=== PATIENT | male | born 1975 | race American Indian/Alaskan Native ===

== ENCOUNTER 2021-07-27 06:10 | Inpatient (IN) | payer SELFPAY ==
[~2021-07-27 06:10] MED LIST: CALCIUM CHLORIDE 1,000 MG/10 ML SYRINGE IV ONE; EPINEPHrine 1 MG/10 ML SYRINGE ONE; SODIUM BICARB 8.4% 50 MEQ/50 ML SYRINGE IV ONE
[2021-07-27] MEDS ORDERED: SODIUM CHLORIDE 0.9% 500 ML 500 ML IV ONE (06:42)
[2021-07-27 07:15] LABS: Hematocrit 34.3 % (35.5-45.6); Hemoglobin 11.2 gm/dl (11.8-15.2); Mean Corpuscular HGB Conc 33 % (32-34); Mean Corpuscular Volume 93 fl (84-94); Red Cell Distribution Width 16.5 % (13.2-15.2)
--- NOTE | 2021-07-27 07:16 | Emergency Department Report ---
HPI - General Chief Complaint: Fever - HPI HPI: Room 4 The patient is a 45-year-old male present with chief complaint of "my legs gave out." The patient states this morning while walking his "legs gave out and he fell to the ground." Patient states he was unable to get up so he laid on the floor for proxy 1 hour before he was found by his fiance. EMS was called and arrived on scene to find the patient hypoxic to 88% on room air. Patient was placed on a nonrebreather with improvement of sats to 100% patient denied ever feeling short of breath, denies URI symptoms,, denies fever, cough nausea or vomiting. Patient states nothing is bothering him as though his lower extremity edema has had for past few days. Patient has a history of ESRD and receives dialysis every Monday and was last dialyzed yesterday. Patient states he does not recall the name of his j[facility] developer ED Past Medical Hx - Past Medical History Previous Medical History?: Yes Hx Hypertension: Yes Hx Diabetes: Yes Hx Renal Disease: Yes (ESRD HD Q MWF) - Surgical History Past Surgical History?: No Additional Surgical History: Left upper extremity fistula - Family History Family history: no significant - Social History Smoking Status: Never Smoker Substance Use Type: None (Denies illicit drug use) ED Review of Systems ROS: Stated complaint: fall Other details as noted in HPI Constitutional: denies: fever Eyes: denies: eye pain ENT: denies: throat pain Respiratory: denies: cough, shortness of breath Cardiovascular: denies: chest pain Endocrine: no symptoms reported Gastrointestinal: denies: abdominal pain Genitourinary: denies: dysuria Musculoskeletal: denies: back pain Neurological: denies: headache Hematological/Lymphatic: other (Bilateral lower extremity edema) Physical Exam - Physical Exam Vital Signs: Vital Signs 07/27/21 07/27/21 07/27/21 06:13 06:45 06:47 Temperature 100.6 F H Pulse Rate 113 H Respiratory 24 12 Rate Blood Pressure 109/55 O2 Sat by Pulse 100 88 100 Oximetry Physical Exam: GENERAL: The patient is well-developed well-nourished male lying on stretcher with nonrebreather in place not appearing to be in acute distress. [] HEENT: Normocephalic. Atraumatic. Extraocular motions are intact. Patient has moist mucous membranes. NECK: Supple. Trachea midline CHEST/LUNGS: Clear to auscultation. There is no respiratory distress noted. HEART/CARDIOVASCULAR: Regular. There is no tachycardia. There is no gallop rub or murmur. ABDOMEN: Abdomen is soft, nontender. Patient has normal bowel sounds. There is no abdominal distention. SKIN: There is no rash. There is 2-3+ bilateral lower extremity pitting edema. There is no diaphoresis. NEURO: The patient is awake, alert, and oriented. The patient is cooperative. The patient has no focal neurologic deficits. The patient has normal speech. GCS 15 MUSCULOSKELETAL: There is no evidence of acute injury. ED Course Vital Signs 07/27/21 07/27/21 07/27/21 06:13 06:45 06:47 Temperature 100.6 F H Pulse Rate 113 H Respiratory 24 12 Rate Blood Pressure 109/55 O2 Sat by Pulse 100 88 100 Oximetry - Consultations Consultation #1: 07/27/21 07:57 Nephrology paged ED Medical Decision Making - Lab Data Result diagrams: 07/27/21 06:49 07/27/21 06:49 Laboratory Tests 07/27/21 07/27/21 07/27/21 06:49 06:49 06:49 WBC 10.3 RBC 3.70 Hgb 11.2 L Hct 34.3 L MCV 93 MCH 30 MCHC 33 RDW 16.5 H Plt Count 95 L Add Manual Diff Complete Total Counted 100 Seg Neuts % (Manual) 54.0 Band Neutrophils % 17.0 Lymphocytes % (Manual) 4.0 L Reactive Lymphs % (Man) 0 Monocytes % (Manual) 10.0 H Eosinophils % (Manual) 1.0 Basophils % (Manual) 0 Metamyelocytes % 14.0 Myelocytes % 0 Promyelocytes % 0 Blast Cells % 0 Nucleated RBC % Not Reportable Seg Neutrophils # Man 5.6 Band Neutrophils # 1.8 Lymphocytes # (Manual) 0.4 L Abs React Lymphs (Man) 0.0 Monocytes # (Manual) 1.0 H Eosinophils # (Manual) 0.1 Basophils # (Manual) 0.0 Metamyelocytes # 1.4 Myelocytes # 0.0 Promyelocytes # 0.0 Blast Cells # 0.0 WBC Morphology Not Reportable Hypersegmented Neuts Not Reportable Hyposegmented Neuts 1+ Hypogranular Neuts Not Reportable Smudge Cells Not Reportable Toxic Granulation Not Reportable Toxic Vacuolation Not Reportable Dohle Bodies Not Reportable Pelger-Huet Anomaly Not Reportable Jane Rods Not Reportable Platelet Estimate Consistent w auto Clumped Platelets Not Reportable Plt Clumps, EDTA Not Reportable Large Platelets Not Reportable Giant Platelets Not Reportable Platelet Satelliting Not Reportable Plt Morphology Comment Not Reportable RBC Morphology Not Reportable Dimorphic RBCs Not Reportable Polychromasia Not Reportable Hypochromasia Not Reportable Poikilocytosis Few Anisocytosis Not Reportable Microcytosis Not Reportable Macrocytosis Not Reportable Spherocytes Not Reportable Pappenheimer Bodies Not Reportable Sickle Cells Not Reportable Target Cells Not Reportable Tear Drop Cells Few Ovalocytes Few Helmet Cells Not Reportable Reyes-Ceres Bodies Not Reportable [place] Rings Not Reportable [place] Cells Not Reportable Bite Cells Not Reportable Crenated Cell Not Reportable Elliptocytes Not Reportable Acanthocytes (Spur) Not Reportable Rouleaux Not Reportable Hemoglobin C Crystals Not Reportable Schistocytes Not Reportable Malaria parasites Not Reportable Burak Bodies Not Reportable Hem Pathologist Commnt No PT 17.8 H INR 1.31 H VBG pH Sodium Potassium Chloride Carbon Dioxide Anion Gap BUN Creatinine Estimated GFR BUN/Creatinine Ratio Glucose Lactic Acid 3.80 H* Calcium Total Bilirubin AST ALT Alkaline Phosphatase Total Creatine Kinase Troponin T NT-Pro-B Natriuret Pep Total Protein Albumin Albumin/Globulin Ratio Triglycerides Cholesterol LDL Cholesterol Direct HDL Cholesterol Cholesterol/HDL Ratio Hep Bs Antigen Hep B Core IgM Ab Hepatitis C Antibody 07/27/21 07/27/21 07/27/21 06:49 06:49 10:04 WBC RBC Hgb Hct MCV MCH MCHC RDW Plt Count Add Manual Diff Total Counted Seg Neuts % (Manual) Band Neutrophils % Lymphocytes % (Manual) Reactive Lymphs % (Man) Monocytes % (Manual) Eosinophils % (Manual) Basophils % (Manual) Metamyelocytes % Myelocytes % Promyelocytes % Blast Cells % Nucleated RBC % Seg Neutrophils # Man Band Neutrophils # Lymphocytes # (Manual) Abs React Lymphs (Man) Monocytes # (Manual) Eosinophils # (Manual) Basophils # (Manual) Metamyelocytes # Myelocytes # Promyelocytes # Blast Cells # WBC Morphology Hypersegmented Neuts Hyposegmented Neuts Hypogranular Neuts Smudge Cells Toxic Granulation Toxic Vacuolation Dohle Bodies Pelger-Huet Anomaly Jane Rods Platelet Estimate Clumped Platelets Plt Clumps, EDTA Large Platelets Giant Platelets Platelet Satelliting Plt Morphology Comment RBC Morphology Dimorphic RBCs Polychromasia Hypochromasia Poikilocytosis Anisocytosis Microcytosis Macrocytosis Spherocytes Pappenheimer Bodies Sickle Cells Target Cells Tear Drop Cells Ovalocytes Helmet Cells Reyes-Ceres Bodies [place] Rings [place] Cells Bite Cells Crenated Cell Elliptocytes Acanthocytes (Spur) Rouleaux Hemoglobin C Crystals Schistocytes Malaria parasites Burak Bodies Hem Pathologist Commnt PT INR VBG pH 7.367 Sodium 141 Potassium 4.8 Chloride 102.7 Carbon Dioxide 21 L Anion Gap 22 BUN 62 H Creatinine 6.4 H Estimated GFR 12 BUN/Creatinine Ratio 10 Glucose 81 Lactic Acid 3.80 H* Calcium 7.7 L Total Bilirubin 0.50 AST 30 ALT 30 Alkaline Phosphatase 47 Total Creatine Kinase 276 H Troponin T 0.222 H* NT-Pro-B Natriuret Pep 28677 H Total Protein 4.6 L Albumin 2.9 L Albumin/Globulin Ratio 1.7 Triglycerides 149 Cholesterol 144 LDL Cholesterol Direct 58 HDL Cholesterol 62 H Cholesterol/HDL Ratio 2.32 Hep Bs Antigen Hep B Core IgM Ab Hepatitis C Antibody 07/27/21 10:04 WBC RBC Hgb Hct MCV MCH MCHC RDW Plt Count Add Manual Diff Total Counted Seg Neuts % (Manual) Band Neutrophils % Lymphocytes % (Manual) Reactive Lymphs % (Man) Monocytes % (Manual) Eosinophils % (Manual) Basophils % (Manual) Metamyelocytes % Myelocytes % Promyelocytes % Blast Cells % Nucleated RBC % Seg Neutrophils # Man Band Neutrophils # Lymphocytes # (Manual) Abs React Lymphs (Man) Monocytes # (Manual) Eosinophils # (Manual) Basophils # (Manual) Metamyelocytes # Myelocytes # Promyelocytes # Blast Cells # WBC Morphology Hypersegmented Neuts Hyposegmented Neuts Hypogranular Neuts Smudge Cells Toxic Granulation Toxic Vacuolation Dohle Bodies Pelger-Huet Anomaly Jane Rods Platelet Estimate Clumped Platelets Plt Clumps, EDTA Large Platelets Giant Platelets Platelet Satelliting Plt Morphology Comment RBC Morphology Dimorphic RBCs Polychromasia Hypochromasia Poikilocytosis Anisocytosis Microcytosis Macrocytosis Spherocytes Pappenheimer Bodies Sickle Cells Target Cells Tear Drop Cells Ovalocytes Helmet Cells Reyes-Ceres Bodies [place] Rings Rashard Cells Bite Cells Crenated Cell Elliptocytes Acanthocytes (Spur) Rouleaux Hemoglobin C Crystals Schistocytes Malaria parasites Burak Bodies Hem Pathologist Commnt PT INR VBG pH Sodium Potassium Chloride Carbon Dioxide Anion Gap BUN Creatinine Estimated GFR BUN/Creatinine Ratio Glucose Lactic Acid Calcium Total Bilirubin AST ALT Alkaline Phosphatase Total Creatine Kinase Troponin T NT-Pro-B Natriuret Pep Total Protein Albumin Albumin/Globulin Ratio Triglycerides Cholesterol LDL Cholesterol Direct HDL Cholesterol Cholesterol/HDL Ratio Hep Bs Antigen Non-reactive Hep B Core IgM Ab Non-reactive Hepatitis C Antibody Non-reactive - EKG Data -: EKG Interpreted by Me EKG shows normal: sinus rhythm Rate: tachycardia (113 beats per) - EKG Data When compared to previous EKG there are: previous EKG unavailable Interpretation: nonspecific ST-T wave nicole (T wave inversion lead III) - Radiology Data Radiology results: report reviewed (Chest x-ray, CT chest), image reviewed (Chest x-ray, CT chest) interpreted by me: Chest x-ray-no definite focal infiltrate, no pneumothorax [address] [address] Cat Scan Report Signed Patient: DON GONSALVES MR#: [id number] : 1975 Acct:[id number] Age/Sex: 45 / M ADM Date: 07/27/21 Loc: ED Attending Dr: Ordering Physician: TERRI GOMEZ MD Date of Service: 07/27/21 Procedure(s): CT angio chest Accession Number(s): [id number] cc: TERRI GOMEZ MD CTA CHEST WITH CONTRAST INDICATION : Hypoxia, fever OMNI 350 100 ML. TECHNIQUE: Axial imaging performed through the chest, with contrast bolus timing set to maximize opacification of the pulmonary arteries. Sagittal and coronal reformatted images. 3-plane MIP reformatted images were obtained. All CT scans at this location are performed using CT dose reduction for ALARA by means of automated exposure control. Omnipaque 350 100 mL of intravenous contrast administered. COMPARISON: AP chest performed earlier today FINDINGS: Bolus: Contrast bolus timing is adequate. PTE: No filling defect is present to suggest PTE. Mediastinum: Mild cardiomegaly and small anterior pericardial fluid are identified. The aorta and great vessels are unremarkable. Mediastinal contents are within normal limits. No pathologic mediastinal adenopathy. Lungs: No evidence for infiltrate, pleural effusion or pneumothorax. No interstitial lung disease. A 1.3 cm well-circumscribed nodule is identified in the anterior left lower lobe on image 81, series 2. Bones: Degenerative changes in the spine with nothing acute. No suspicious bony lesion is detected. Upper abdomen: Limited imaging of the upper abdomen shows nothing acute. A 4 x 2 well circumscribed hypoechoic density is identified in the medial left breast has the appearance of a seroma or sebaceous cyst. There is mild diffuse subcutaneous edema throughout the chest wall. IMPRESSION: No evidence for pulmonary embolus. No acute process is identified in the chest. Mild cardiomegaly and small pericardial effusion. 1.3 cm nodule in the left lower lobe. Current guidelines recommend follow-up CT in 3 months, and/or PET/CT, and/or biopsy. I would consider PET/CT if further evaluation is needed. Probable seroma or sebaceous cyst in the medial left br east soft tissues. Signer Name: Jeff Richardson Jr, MD Signed: 07/27/2021 11:08 AM Workstation Name: [id number] Transcribed By: TTR Dictated By: JEFF RICHARDSON JR, MD Electronically Authenticated By: JEFF RICHARDSON JR, MD Signed Date/Time: 07/27/21 1108 DD/ 1056 TD/TT: [facility] [address] [place] [address] XRay Report Signed Patient: DON GONSALVES MR#: [id number] : 1975 Acct:[id number] Age/Sex: 45 / M ADM Date: 07/27/21 Loc: ED Attending Dr: Ordering Physician: TERRI GOMEZ MD Date of Service: 07/27/21 Procedure(s): XR chest 1V ap Accession Number(s): [id number] cc: TERRI GOMEZ MD Fluoro Time In Minutes: CHEST 1 VIEW INDICATION: possible Sepsis. COMPARISON: None FINDINGS: Support devices: None. Heart: Mild cardiomegaly Lungs/Pleura: The lungs are clear with no evidence for pneumonia, pleural effusion or pneumothorax. Additional findings: None. IMPRESSION: Mild cardiomegaly. Lungs clear. Signer Name: Jeff Richardson Jr, MD Signed: 07/27/2021 7:51 AM Workstation Name: [id number] Transcribed By: TTR Dictated By: JEFF RICHARDSON JR, MD Electronically Authenticated By: JEFF RICHARDSON JR, MD Signed Date/Time: 07/27/21750 DD/ 9 TD/TT: - Differential Diagnosis Sepsis, volume overload, pneumonia, Critical care attestation.: If time is entered above; I have spent that time in minutes in the direct care of this critically ill patient, excluding procedure time. ED Disposition Clinical Impression: Fever, Peripheral edema, ESRD (end stage renal disease) Disposition: ADMITTED INPATIENT Is pt being admited?: Yes Does the pt Need Aspirin: No Condition: Fair Referrals: PRIMARY CARE, [Primary Care Provider] - 3-5 Days Time of Disposition: 11:19 (Care transferred to hospitalist (Dr. Hyde))
[2021-07-27 07:17] LABS: Platelet Count 95 K/mm3 (140-440)
[2021-07-27] MEDS ORDERED: ACETAMINOPHEN 500 MG TAB PO ONE (07:19)
[2021-07-27 07:24] LABS: INR 1.31 (0.87-1.13)
[2021-07-27 07:34] LABS: Albumin 2.9 g/dL (3.9-5); Calcium 7.7 mg/dL (8.4-10.2)
--- NOTE | 2021-07-27 07:55 | XRay Report ---
CHEST 1 VIEW INDICATION: possible Sepsis. COMPARISON: None FINDINGS: Support devices: None. Heart: Mild cardiomegaly Lungs/Pleura: The lungs are clear with no evidence for pneumonia, pleural effusion or pneumothorax. Additional findings: None. IMPRESSION: Mild cardiomegaly. Lungs clear. Signer Name: Jeff Richardson Jr, MD Signed: 07/27/2021 7:51 AM Workstation Name: [id number]
[2021-07-27 07:57] LABS: Chol/HDL Ratio 2.32 %
[2021-07-27 09:40] LABS: Band Neutrophils # (Manual) 1.8 K/mm3; Basophils % (Manual) 0 % (0.0-1.8); Total Cells Counted 100
[2021-07-27 09:45] LABS: Tear Drop Cells Few
[2021-07-27 09:46] LABS: Ovalocytes Few; Poikilocytosis Few
[2021-07-27 09:49] LABS: Platelet Estimate Consistent w Auto
--- NOTE | 2021-07-27 10:26 | Electrocardiograph Report ---
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
[2021-07-27 10:48] LABS: Hepatitis B Surface Antigen Non-Reactive (Negative); Hepatitis C Virus Antibody Non-Reactive (NonReactive)
--- NOTE | 2021-07-27 11:13 | Cat Scan Report ---
CTA CHEST WITH CONTRAST INDICATION : Hypoxia, fever OMNI 350 100 ML. TECHNIQUE: Axial imaging performed through the chest, with contrast bolus timing set to maximize opa cification of the pulmonary arteries. Sagittal and coronal reformatted images. 3-plane MIP reformatte d images were obtained. All CT scans at this location are performed using CT dose reduction for ALAR A by means of automated exposure control. Omnipaque 350 100 mL of intravenous contrast administered. COMPARISON: AP chest performed earlier today FINDINGS: Bolus: Contrast bolus timing is adequate. PTE: No filling defect is present to suggest PTE. Mediastinum: Mild cardiomegaly and small anterior pericardial fluid are identified. The aorta and gr eat vessels are unremarkable. Mediastinal contents are within normal limits. No pathologic mediastin al adenopathy. Lungs: No evidence for infiltrate, pleural effusion or pneumothorax. No interstitial lung disease. A 1.3 cm well-circumscribed nodule is identified in the anterior left lower lobe on image 81, series 2 . Bones: Degenerative changes in the spine with nothing acute. No suspicious bony lesion is detected. Upper abdomen: Limited imaging of the upper abdomen shows nothing acute. A 4 x 2 well circumscribed hypoechoic density is identified in the medial left breast has the appearance of a seroma or sebaceo us cyst. There is mild diffuse subcutaneous edema throughout the chest wall. IMPRESSION: No evidence for pulmonary embolus. No acute process is identified in the chest. Mild cardiomegaly and small pericardial effusion. 1.3 cm nodule in the left lower lobe. Current guidelines recommend follow-up CT in 3 months, and/or P ET/CT, and/or biopsy. I would consider PET/CT if further evaluation is needed. Probable seroma or sebaceous cyst in the medial left breast soft tissues. Signer Name: Jeff Richardson Jr, MD Signed: 07/27/2021 11:08 AM Workstation Name: [id number]
[2021-07-27] MEDS ORDERED: PIPERACIL-TAZO 2.25 GM/50 ML 2.25 GM/50 ML BAG IV ONE ×2 (11:37→18:00)
[2021-07-27] MEDS ORDERED: ONDANSETRON 4 MG/2 ML INJ IV PRN (12:11)
[2021-07-27] MEDS ORDERED: MORPHINE 2 MG/1 ML INJ IV PRN (12:11)
[2021-07-27] MEDS ORDERED: ACETAMINOPHEN 325 MG TAB PO PRN (12:11)
[2021-07-27] MEDS ORDERED: oxyCODONE /ACETAMINOPHEN 5-325MG TAB PO PRN (12:11)
--- NOTE | 2021-07-27 12:15 | History and Physical Report ---
History of Present Illness Date of examination: 07/27/21 Date of admission: July 27, 2021 Chief complaint: Severe weakness and difficulty walking. Fever. Since a.m. History of present illness: 45-year-old -[place]ican male with morbid obesity with a BMI of 42 and w eighing about 316 pounds comes in for weakness in the both the legs and fever. Patient woke up around 4:30 AM and while going to the restroom his legs gave out and fell to the ground. Patient states that he was unable to get them for approximately 1 hour before he was found by his fiance. EMS was called. Patient was hypoxic to 88% on room air. Patient was placed on nonrebreather with improvement of oxygen saturations 100%. Patient denied feeling shortness of breath. Denying any upper respiratory symptoms fever cough or vomiting. In the emergency room his temperature was 101.9. His main complaint is weakness in both the legs. Patient had dialysis on Monday and Monday. Today is Monday and is due for dialysis at 2 PM. Patient was brought in here because of fall and hypoxia. Patient incidentally had a, possible sepsis and acute respiratory failure with hypoxia of 101.9. Slightly altered sensorium. ED course: Patient being admitted for high fever, sepsis and acute respiratory failure. Also for emergent hemodialysis. Nephrology was consulted. IV Zosyn was given. Blood cultures done. Chest x-ray did not show any pneumonia. - Past Medical History --Previous Medical History?: Yes --Hypertension: Yes --Diabetes: Yes --Renal Disease: Yes (ESRD HD Q MWF) - Surgical History --Left upper extremity fistula - Family History --Family history: no significant - Social History --Smoking Status: Never Smoker --Substance Use Type: None (Denies illicit drug use -Review of Systems ROS: Stated complaint: fall Other details as noted in HPI Constitutional: denies: fever Eyes: denies: eye pain ENT: denies: throat pain Respiratory: denies: cough, shortness of breath Cardiovascular: denies: chest pain Endocrine: no symptoms reported Gastrointestinal: denies: abdominal pain Genitourinary: denies: dysuria Musculoskeletal: denies: back pain Neurological: denies: headache Hematological/Lymphatic: other (Bilateral lower extremity edema) Medications and Allergies Allergies Allergy/AdvReac Type Severity Reaction Status Date / Time No Known Allergies Allergy Verified 07/27/21 07:09 Exam - Constitutional Vitals: Temp Pulse Resp BP Pulse Ox 101.9 F H 67 18 99/43 100 07/27/21 11:50 07/27/21 11:50 07/27/21 11:50 07/27/21 11:50 07/27/21 11:50 General appearance: Present: mild distress, well-nourished - EENT Eyes: Present: PERRL ENT: hearing intact, clear oral mucosa - Neck Neck: Present: supple, normal ROM - Respiratory Respiratory effort: normal Respiratory: bilateral: CTA, rhonchi - Cardiovascular Heart rate: 98 Heart Sounds: Present: S1 & S2. Absent: rub, click - Extremities Extremities: no ischemia, pulses symmetrical, No edema Peripheral Pulses: within normal limits - Abdominal General gastrointestinal: Present: soft, non-tender, non-distended, normal bowel sounds Male genitourinary: Present: normal - Rectal Rectal Exam: deferred - Integumentary Integumentary: Present: clear, warm, dry - Musculoskeletal Musculoskeletal: generalized weakness - Psychiatric Psychiatric: other (Altered sensorium) - Neurologic Neurologic: CNII-XII intact, moves all extremities, other (Altered sensorium) HEART Score - HEART Score History: Moderately suspicious Age: < 45 Risk factors: > 3 risk factors or hx of atherosclerotic disease Troponin: Troponin T 0.222 ng/mL (0.00-0.029) H* 07/27/21 06:49 Troponin: 1-3x normal limit - Critical Actions Critical Actions: 4-6 pts:12-16.6% risk of adverse cardiac event. Should be admitted Results - Labs CBC & Chem 7: 07/27/21 06:49 07/27/21 06:49 Labs: Laboratory Last Values WBC 10.3 K/mm3 (4.5-11.0) 07/27/21 06:49 RBC 3.70 M/mm3 (3.65-5.03) 07/27/21 06:49 Hgb 11.2 gm/dl (11.8-15.2) L 07/27/21 06:49 Hct 34.3 % (35.5-45.6) L 07/27/21 06:49 MCV 93 fl (84-94) 07/27/21 06:49 MCH 30 pg (28-32) 07/27/21 06:49 MCHC 33 % (32-34) 07/27/21 06:49 RDW 16.5 % (13.2-15.2) H 07/27/21 06:49 Plt Count 95 K/mm3 (140-440) L 07/27/21 06:49 Add Manual Diff Complete 07/27/21 06:49 Total Counted 100 07/27/21 06:49 Seg Neuts % (Manual) 54.0 % (40.0-70.0) 07/27/21 06:49 Band Neutrophils % 17.0 % 07/27/21 06:49 Lymphocytes % (Manual) 4.0 % (13.4-35.0) L 07/27/21 06:49 Reactive Lymphs % (Man) 0 % 07/27/21 06:49 Monocytes % (Manual) 10.0 % (0.0-7.3) H 07/27/21 06:49 Eosinophils % (Manual) 1.0 % (0.0-4.3) 07/27/21 06:49 Basophils % (Manual) 0 % (0.0-1.8) 07/27/21 06:49 Metamyelocytes % 14.0 % 07/27/21 06:49 Myelocytes % 0 % 07/27/21 06:49 Promyelocytes % 0 % 07/27/21 06:49 Blast Cells % 0 % 07/27/21 06:49 Nucleated RBC % Not Reportable 07/27/21 06:49 Seg Neutrophils # Man 5.6 K/mm3 (1.8-7.7) 07/27/21 06:49 Band Neutrophils # 1.8 K/mm3 07/27/21 06:49 Lymphocytes # (Manual) 0.4 K/mm3 (1.2-5.4) L 07/27/21 06:49 Abs React Lymphs (Man) 0.0 K/mm3 07/27/21 06:49 Monocytes # (Manual) 1.0 K/mm3 (0.0-0.8) H 07/27/21 06:49 Eosinophils # (Manual) 0.1 K/mm3 (0.0-0.4) 07/27/21 06:49 Basophils # (Manual) 0.0 K/mm3 (0.0-0.1) 07/27/21 06:49 Metamyelocytes # 1.4 K/mm3 07/27/21 06:49 Myelocytes # 0.0 K/mm3 07/27/21 06:49 Promyelocytes # 0.0 K/mm3 07/27/21 06:49 Blast Cells # 0.0 K/mm3 07/27/21 06:49 WBC Morphology Not Reportable 07/27/21 06:49 Hypersegmented Neuts Not Reportable 07/27/21 06:49 Hyposegmented Neuts 1+ 07/27/21 06:49 Hypogranular Neuts Not Reportable 07/27/21 06:49 Smudge Cells Not Reportable 07/27/21 06:49 Toxic Granulation Not Reportable 07/27/21 06:49 Toxic Vacuolation Not Reportable 07/27/21 06:49 Dohle Bodies Not Reportable 07/27/21 06:49 Pelger-Huet Anomaly Not Reportable 07/27/21 06:49 Jane Rods Not Reportable 07/27/21 06:49 Platelet Estimate Consistent w auto 07/27/21 06:49 Clumped Platelets Not Reportable 07/27/21 06:49 Plt Clumps, EDTA Not Reportable 07/27/21 06:49 Large Platelets Not Reportable 07/27/21 06:49 Giant Platelets Not Reportable 07/27/21 06:49 Platelet Satelliting Not Reportable 07/27/21 06:49 Plt Morphology Comment Not Reportable 07/27/21 06:49 RBC Morphology Not Reportable 07/27/21 06:49 Dimorphic RBCs Not Reportable 07/27/21 06:49 Polychromasia Not Reportable 07/27/21 06:49 Hypochromasia Not Reportable 07/27/21 06:49 Poikilocytosis Few 07/27/21 06:49 Anisocytosis Not Reportable 07/27/21 06:49 Microcytosis Not Reportable 07/27/21 06:49 Macrocytosis Not Reportable 07/27/21 06:49 Spherocytes Not Reportable 07/27/21 06:49 Pappenheimer Bodies Not Reportable 07/27/21 06:49 Sickle Cells Not Reportable 07/27/21 06:49 Target Cells Not Reportable 07/27/21 06:49 Tear Drop Cells Few 07/27/21 06:49 Ovalocytes Few 07/27/21 06:49 Helmet Cells Not Reportable 07/27/21 06:49 [place] Bodies Not Reportable 07/27/21 06:49 Abbot Rings Not Reportable 07/27/21 06:49 [place] Cells Not Reportable 07/27/21 06:49 Bite Cells Not Reportable 07/27/21 06:49 Crenated Cell Not Reportable 07/27/21 06:49 Elliptocytes Not Reportable 07/27/21 06:49 Acanthocytes (Spur) Not Reportable 07/27/21 06:49 Rouleaux Not Reportable 07/27/21 06:49 Hemoglobin C Crystals Not Reportable 07/27/21 06:49 Schistocytes Not Reportable 07/27/21 06:49 Malaria parasites Not Reportable 07/27/21 06:49 [place]ak Bodies Not Reportable 07/27/21 06:49 Hem Pathologist Commnt No 07/27/21 06:49 PT 17.8 Sec. (12.2-14.9) H 07/27/21 06:49 INR 1.31 (0.87-1.13) H 07/27/21 06:49 VBG pH 7.367 (7.320-7.420) 07/27/21 06:49 Sodium 141 mmol/L (137-145) 07/27/21 06:49 Potassium 4.8 mmol/L (3.6-5.0) 07/27/21 06:49 Chloride 102.7 mmol/L (98-107) 07/27/21 06:49 Carbon Dioxide 21 mmol/L (22-30) L 07/27/21 06:49 Anion Gap 22 mmol/L 07/27/21 06:49 BUN 62 mg/dL (9-20) H 07/27/21 06:49 Creatinine 6.4 mg/dL (0.8-1.3) H 07/27/21 06:49 Estimated GFR 12 ml/min 07/27/21 06:49 BUN/Creatinine Ratio 10 % 07/27/21 06:49 Glucose 81 mg/dL (75-100) 07/27/21 06:49 Lactic Acid 3.80 mmol/L (0.7-2.0) H* 07/27/21 10:04 Calcium 7.7 mg/dL (8.4-10.2) L 07/27/21 06:49 Total Bilirubin 0.50 mg/dL (0.1-1.2) 07/27/21 06:49 AST 30 units/L (5-40) 07/27/21 06:49 ALT 30 units/L (7-56) 07/27/21 06:49 Alkaline Phosphatase 47 units/L (35-129) 07/27/21 06:49 Total Creatine Kinase 276 units/L (55-170) H 07/27/21 06:49 Troponin T 0.222 ng/mL (0.00-0.029) H* 07/27/21 06:49 NT-Pro-B Natriuret Pep 81538 pg/mL (0-450) H 07/27/21 06:49 Total Protein 4.6 g/dL (6.3-8.2) L 07/27/21 06:49 Albumin 2.9 g/dL (3.9-5) L 07/27/21 06:49 Albumin/Globulin Ratio 1.7 % 07/27/21 06:49 Triglycerides 149 mg/dL (2-149) 07/27/21 06:49 Cholesterol 144 mg/dL (50-199) 07/27/21 06:49 LDL Cholesterol Direct 58 mg/dL (50-130) 07/27/21 06:49 HDL Cholesterol 62 mg/dL (40-59) H 07/27/21 06:49 Cholesterol/HDL Ratio 2.32 % 07/27/21 06:49 Hep Bs Antigen Non-reactive (Negative) 07/27/21 10:04 Hep B Core IgM Ab Non-reactive (NonReactive) 07/27/21 10:04 Hepatitis C Antibody Non-reactive (NonReactive) 07/27/21 10:04 - Imaging and Cardiology Imaging and Cardiology: Chest x-ray Mild cardiomegaly Lungs are clear Echocardiogram Sinus tachycardia Low voltage with right axis deviation Consider anterior infarct next line no previous EKG available for comparison Chest CTA No evidence for pulmonary embolism. No acute process identified in the chest. Mild cardiomegaly and small pleural effusion. 1.3 cm nodule in the left lower lobe. Left follow-up CT in 3 months to 6 months. Assessment and Plan Advance Directives: Yes (Full code) VTE prophylaxis?: Chemical Plan of care discussed with patient/family: Yes - Patient Problems (1) Acute respiratory failure with hypoxia Status: Acute Plan to address problem: Possibly secondary to volume overload BNP is high BNP is 33,866 Echocardiogram for ejection fraction normal wall motion abnormalities and valve function Emergent hemodialysis for volume removal (2) Sepsis Status: Acute Qualifiers: Sepsis type: sepsis due to unspecified organism Sepsis acute organ dysfunction status: without acute organ dysfunction Qualified Code(s): A41.9 - Sepsis, unspecified organism Plan to address problem: Patient is a high fever normal 1.9 and elevated lactic acid IV Zosyn started IV vancomycin initiated ID consult if necessary (3) ESRD (end stage renal disease) Status: Chronic Plan to address problem: Emergent hemodialysis today Nephrology consulted (4) HTN (hypertension) Status: Chronic Qualifiers: Hypertension type: primary hypertension Qualified Code(s): I10 - Essential (primary) hypertension (5) Acute exacerbation of CHF (congestive heart failure) Status: Acute Qualifiers: Heart failure type: combined systolic and diastolic Qualified Code(s): I50.43 - Acute on chronic combined systolic (congestive) and diastolic (congestive) heart failure Plan to address problem: No prior history of CHF Elevated BNP of 33,866 Echocardiogram for ejection fraction, valve function and wall motion abnormalities Increased ultrafiltration (6) Morbid obesity with BMI of 40.0-44.9, adult Status: Chronic Plan to address problem: Patient counseled at the time of admission Candidate for bariatric surgery Patient has multiple comorbid conditions which may preclude bariatric surgery (7) DVT prophylaxis Status: Acute Plan to address problem: On anticoagulation GI prophylaxis (8) Advance care planning Status: Acute Plan to address problem: Disease education conducted, care plan discussed, diagnosis discussed, prognosis discussed. Patient is full code. Patient acknowledges understanding and agreement with care plan. +30 minutes.
--- NOTE | 2021-07-27 12:20 | Consultation ---
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 He came to the Ed for worsening weakens and was found to be hypoxic and hypotensive. renal consult was requested for management of HD while inpatient Past History Past Medical History: ESRD Medications and Allergies Allergies Allergy/AdvReac Type Severity Reaction Status Date / Time No Known Allergies Allergy Verified 07/27/21 07:09 Active Meds: Active Medications Acetaminophen (Acetaminophen 325 Mg Tab) 650 mg PO Q4H PRN PRN Reason: Pain MILD(1-3)/Fever >100.5/PA Heparin Sodium (Porcine) (Heparin 5,000 Unit/1 Ml Vial) 5,000 unit SUB-Q Q12HR TERRELL Ceftriaxone Sodium (Rocephin/Ns 1 Gm/50 Ml) 1 gm in 50 mls @ 100 mls/hr IV Q24H TERRELL; Protocol Morphine Sulfate (Morphine 2 Mg/1 Ml Inj) 2 mg IV Q4H PRN PRN Reason: Pain, Moderate (4-6) Ondansetron HCl (Ondansetron 4 Mg/2 Ml Inj) 4 mg IV Q8H PRN PRN Reason: Nausea And Vomiting Oxycodone/Acetaminophen (Oxycodone /Acetaminophen 5-325mg Tab) 1 tab PO Q6H PRN PRN Reason: Pain, Moderate (4-6) Sodium Chloride (Sodium Chloride 0.9% 10 Ml Flush Syringe) 10 ml IV BID TERRELL Sodium Chloride (Sodium Chloride 0.9% 10 Ml Flush Syringe) 10 ml IV PRN PRN PRN Reason: LINE FLUSH Review of Systems All systems: negative (weakness) Exam - Vital Signs Vital signs: Vital Signs Temp Pulse Resp BP Pulse Ox 100.6 F H 113 H 24 109/55 100 07/27/21 06:13 07/27/21 06:13 07/27/21 06:13 07/27/21 06:13 07/27/21 06:13 - General Appearance General appearance: well-developed, well-nourished EENT: ATNC, PERRL, mucous membranes moist Neck: Present: neck supple Respiratory: Decreased Breath Sounds Heart: regular, S1S2 Gastrointestinal: Present: normoactive bowel sounds. Absent: tenderness, distended, masses Integumentary: no rash, warm and dry Neurologic: no focal deficit, no asterixis, alert and oriented x3 Musculoskeletal: Present: other (2-3+ pitting edema in BLE) Psychiatric: mood/affect appropriate, cooperative Results - Lab Results 07/27/21 06:49 07/27/21 06:49 Most recent lab results Calcium 7.7 mg/dL (8.4-10.2) L 07/27/21 06:49 Assessment and Plan Fever Peripheral edema ESRD (end stage renal disease) Hypotension volume overload HD today for UF and clearance and will will need daily. Albumin 25% as needed to maintain BP will assess dialysis needs daily renally dose meds srtict I&O daily weight
[2021-07-27] MEDS ORDERED: cefTRIAXone/NS 1 GM/50 ML 1 GM/50 ML BAG IV SCH (13:00)
[2021-07-27] MEDS ORDERED: VANCOMYCIN 2,000 MG in SODIUM CHLORIDE 0.9% 500 ML 500 ML IV ONE (19:00)
[2021-07-27] MEDS ORDERED: VANCOMYCIN PHARMACY TO DOSE IV SCH (19:00)
[2021-07-27 19:25] VITALS: BP 107/44
[2021-07-27] MEDS ORDERED: HEPARIN 5,000 UNIT/1 ML VIAL SUB-Q SCH (22:00)
--- NOTE | 2021-07-28 08:12 | Discharge Summary ---
Providers - Providers Date of Admission: 07/27/21 12:12 Date of discharge: 07/27/21 Attending physician: TERRANCE HICKEY 07/27/21 08:01 Consult to Physician [CONS] Urgent Comment: Consulting Provider: BYRON CHAPMAN Physician Instructions: Reason For Exam: ESRD, needing hemodialysis Primary care physician: [employer]Y [employer]SE [employer]ER Hospitalization Condition: Fair Procedures: Hemodialysis with ultrafiltration of 3 L of fluid Hospital course: 45-year-old -[place] male with morbid obesity with a BMI of 42 and weighing about 316 pounds comes in for weakness in the both the legs and fever. Patient woke up around 4:30 AM and while going to the restroom his legs gave out and fell to the ground. Patient states that he was unable to get them for approximately 1 hour before he was found by his fiance. EMS was called. Patient was hypoxic to 88% on room air. Patient was placed on nonrebreather with improvement of oxygen saturations 100%. Patient denied feeling shortness of breath. Denying any upper respiratory symptoms fever cough or vomiting. In the emergency room his temperature was 101.9. His main complaint is weakness in both the legs. Patient had dialysis on Monday and Monday. Today is Monday and is due for dialysis at 2 PM. Patient was brought in here because of fall and hypoxia. Patient incidentally had a, possible sepsis and acute respiratory failure with hypoxia of 101.9. Slightly altered sensorium. ED course: Patient being admitted for high fever, sepsis and acute respiratory failure. Also for emergent hemodialysis. Nephrology was consulted. IV Zosyn was given. Blood cultures done. Chest x-ray did not show any pneumonia. Hospital course Patient went for emergent hemodialysis and 3 L of fluid was taken out. Patient was sent back to the emergency room around 5:30 PM.. Patient was lethargic and altered sensorium. Around 6 PM patient was noticed to have no pulse when CODE BLUE was called. ACLS protocol was initiated. Patient had pink to red frothy sputum in the lungs. Patient went into cardiac arrest. Chest compressions multiple epinephrine and bicarb injections and calcium chloride patient continued to be in asystole. Patient could not be revived. Had a family conference after extubation for 1 hour. Explained possible etiologies. Family upset because of expected . Cause of Cardiopulmonary arrest Acute pulmonary edema Sepsis Elevated lactic acid Acute respiratory failure with hypoxia End-stage renal disease with hemodialysis Morbid obesity Admission diagnosis - Patient Problems (1) Acute respiratory failure with hypoxia Status: Acute Plan to address problem: Possibly secondary to volume overload BNP is high BNP is 33,866 Echocardiogram for ejection fraction normal wall motion abnormalities and valve function Emergent hemodialysis for volume removal (2) Sepsis Status: Acute Qualifiers: Sepsis type: sepsis due to unspecified organism Sepsis acute organ dysfunction status: without acute organ dysfunction Qualified Code(s): A41.9 - Sepsis, unspecified organism Plan to address problem: Patient is a high fever normal 1.9 and elevated lactic acid IV Zosyn started IV vancomycin initiated ID consult if necessary (3) ESRD (end stage renal disease) Status: Chronic Plan to address problem: Emergent hemodialysis today Nephrology consulted (4) HTN (hypertension) Status: Chronic Qualifiers: Hypertension type: primary hypertension Qualified Code(s): I10 - Essential (primary) hypertension (5) Acute exacerbation of CHF (congestive heart failure) Status: Acute Qualifiers: Heart failure type: combined systolic and diastolic Qualified Code(s): I50.43 - Acute on chronic combined systolic (congestive) and diastolic (congestive) heart failure Plan to address problem: No prior history of CHF Elevated BNP of 33,866 Echocardiogram for ejection fraction, valve function and wall motion abnormalities Increased ultrafiltration (6) Morbid obesity with BMI of 40.0-44.9, adult Status: Chronic Plan to address problem: Patient counseled at the time of admission Candidate for bariatric surgery Patient has multiple comorbid conditions which may preclude bariatric surgery Disposition: 20 Final Discharge Diagnosis (Prints w/discharge instructions): Cardiopulmonary arrest. Acute pulmonary edema. Sepsis. Elevated lactic acid. End-stage renal disease with hemodialysis. Morbid obesity Time spent for discharge: 35 minutes - Discharge Diagnoses (1) Acute respiratory failure with hypoxia Status: Acute (2) Sepsis Status: Acute Qualifiers: Sepsis type: sepsis due to unspecified organism Sepsis acute organ dysfunction status: without acute organ dysfunction Qualified Code(s): A41.9 - Sepsis, unspecified organism (3) ESRD (end stage renal disease) Status: Chronic (4) HTN (hypertension) Status: Chronic Qualifiers: Hypertension type: primary hypertension Qualified Code(s): I10 - Essential (primary) hypertension (5) Acute exacerbation of CHF (congestive heart failure) Status: Acute Qualifiers: Heart failure type: combined systolic and diastolic Qualified Code(s): I50.43 - Acute on chronic combined systolic (congestive) and diastolic (congestive) heart failure (6) Morbid obesity with BMI of 40.0-44.9, adult Status: Chronic (7) DVT prophylaxis Status: Acute (8) Advance care planning Status: Acute Core Measure Documentation - Palliative Care Palliative Care/ Comfort Measures: Not Applicable - Core Measures Any of the following diagnoses?: none Exam - Constitutional Vitals: Temp Pulse Resp BP Pulse Ox 103.1 F H 67 18 107/44 100 07/27/21 17:30 07/27/21 18:20 07/27/21 15:30 07/27/21 18:54 07/27/21 15:30 General appearance: Present: well-nourished - EENT ENT: hearing intact - Neck Neck: Present: supple, normal ROM - Respiratory Respiratory effort: normal Respiratory: bilateral: CTA - Cardiovascular Heart rate: 0 Heart Sounds: Absent: rub, click - Abdominal General gastrointestinal: Present: soft, non-tender, non-distended - Psychiatric Psychiatric: other (Unresponsive) - Neurologic Neurologic: other (Unresponsive) - Allied Health Allied health notes reviewed: nursing, social work, case management Plan Follow up with: PRIMARY CAREMD [Primary Care Provider] - 3-5 Days
== END 2021-07-27 19:45 | DRG 871 ==
LOC: ED 06:10 → 4A 12:12 → UNDODISIN 07-28 00:06
PROVIDERS: ADMIT Internal Medicine; ATTEND Internal Medicine
PROC: 5A1D70Z Performance of Urinary Filtration, Intermittent, Less than 6 Hours Per Day (ICD-10-PCS; principal; 2021-07-27)
DX: A41.9 Sepsis, unspecified organism (principal); N18.6 End stage renal disease; J96.01 Acute respiratory failure with hypoxia; I50.43 Acute on chronic combined systolic (congestive) and diastolic (congestive) heart failure; I13.2 Hypertensive heart and chronic kidney disease with heart failure and with stage 5 chronic kidney disease, or end stage renal disease; Z68.41 Body mass index [BMI] 40.0-44.9, adult; Z20.822 Contact with and (suspected) exposure to COVID-19; E87.70 Fluid overload, unspecified; E11.22 Type 2 diabetes mellitus with diabetic chronic kidney disease; K21.9 Gastro-esophageal reflux disease without esophagitis; E66.01 Morbid (severe) obesity due to excess calories; I46.9 Cardiac arrest, cause unspecified
CPT/HCPCS: 36415; 71045; 71275; 80053; 80061; 80074; 82140; 82550; 82805; 82962; 83880; 84484; 85007; 85025; 85610; 87040; 93005; 96365; 96375; 99285; G0378; J3490; J0171; J0696; J2543; J7040; Q9967